=== PATIENT | female | born 1960 ===

== ENCOUNTER 2017-10-26 12:47 | Emergency (ER) | payer OTHER ==
[2017-10-26 13:02] VITALS: TEMP 98.6
--- NOTE | 2017-10-26 14:20 | ED PDOC ---
HPI: General Adult Time Seen by Provider: 10/26/17 13:48 Chief Complaint (Nursing): Abnormal Skin Integrity Chief Complaint (Provider): left sided facial swelling History Per: Patient History/Exam Limitations: no limitations Onset/Duration Of Symptoms: Days (x2) Current Symptoms Are (Timing): Still Present Recently: Treated By A Physician Additional Complaint(s): Prashant Delgado is a 57 year old female, with a past medical history of HTN and diabetes, who presents to the emergency department complaining of left sided facial swelling onset for x2 days. Patient states it started at the left upper jaw and then it spread down to left check and is associated with mild pain. Patient went to urgent clinic for symptoms and was prescribed Augmentin, but with no improvement which prompted ED visit. Patient denies any fever, discharge, headache, vision problems, sore throat or URI symptoms. No further medical complaints. PMD: Vadim Smith Past Medical History Reviewed: Historical Data, Nursing Documentation, Vital Signs Vital Signs: Last Vital Signs Temp 98.6 F 10/26/17 12:59 Pulse 103 H 10/26/17 12:59 Resp 20 10/26/17 12:59 BP 152/84 H 10/26/17 12:59 Pulse Ox 98 10/26/17 16:35 - Medical History PMH: Diabetes, HTN - Surgical History Surgical History: No Surg Hx - Family History Family History: States: No Known Family Hx - Allergies Allergies/Adverse Reactions: Allergies Allergy/AdvReac Type Severity Reaction Status Date / Time No Known Allergies Allergy Verified 10/26/17 12:57 Review of Systems ROS Statement: Except As Marked, All Systems Reviewed And Found Negative Constitutional: Negative for: Fever Eyes: Negative for: Vision Change ENT: Positive for: Other (left sided facial swelling). Negative for: Throat Pain Neurological: Negative for: Headache Physical Exam - Reviewed Nursing Documentation Reviewed: Yes Vital Signs Reviewed: Yes - Physical Exam Appears: Positive for: Well (comfortable), Non-toxic, No Acute Distress Head Exam: Positive for: ATRAUMATIC, NORMOCEPHALIC Skin: Positive for: Normal Color, Warm, Dry Eye Exam: Positive for: Normal appearance, EOMI, PERRL. Negative for: Periorbital swelling ENT: Positive for: Pharynx Is (normal), TM Is/Are (normal), Sinus Pain/Drainage (left sided maxillary sinus tenderness) Neck: Positive for: Painless ROM, Supple Cardiovascular/Chest: Positive for: Regular Rate, Rhythm. Negative for: Murmur Respiratory: Positive for: Normal Breath Sounds. Negative for: Respiratory Distress Extremity: Positive for: Normal ROM (upper and lower extremities). Negative for : Deformity, Swelling Neurologic/Psych: Positive for: Alert, Oriented. Negative for: Motor/Sensory Deficits - Laboratory Results Result Diagrams: 10/26/17 15:10 10/26/17 15:10 - ECG O2 Sat by Pulse Oximetry: 98 (RA) Pulse Ox Interpretation: Normal - Progress Re-evaluation Time: 16:53 Condition: Re-examined, Improved Medical Decision Making Medical Decision Making: Initial Impression: left sided facial swelling. Differential includes: maxillary sinusitis, possible dental abscess less likely parotitis. Initial Plan: --Maxillofacial w/o contrast [CT] --BMP --CBC w/ differential --Reevaluation 16:[address] FINDINGS: NASAL BONES: Unremarkable. ORBITS: Unremarkable. PARANASAL SINUSES/ MASTOIDS: Small mucous retention cyst at the base of the left maxillary sinus. Otherwise unremarkable paranasal sinusitis is which are well aerated without air-fluid levels or other stigmata of acute sinusitis. MAXILLA: Unremarkable. MANDIBLE/ TEMPOROMANDIBULAR JOINTS: Unremarkable. SKULL BASE: Unremarkable. TEMPORAL BONES: Middle ears and mastoid grossly unremarkable. OTHER FINDINGS: Dental disease primarily affecting the upper right mole are and incisor root IMPRESSION: No acute findings related to/accounting for the clinical presentation. Additional benign and/or incidental findings described above. Scribe Attestation: Documented by Ernesto Griffith, acting as a scribe for Bob Cohen MD Provider Scribe Attestation: All medical record entries made by the Scribe were at my direction and personally dictated by me. I have reviewed the chart and agree that the record accurately reflects my personal performance of the history, physical exam, medical decision making, and the department course for this patient. I have also personally directed, reviewed, and agree with the discharge instructions and disposition. Disposition - Clinical Impression Clinical Impression: Maxillary cyst, Facial swelling - Patient ED Disposition Is Patient to be Admitted: No Doctor Will See Patient In The: Office Counseled Patient/Family Regarding: Studies Performed, Diagnosis, Need For Followup - Disposition Referrals: Moy Devine MD [Staff Provider] - Disposition: Routine/Home Disposition Time: 16:55 Condition: GOOD Additional Instructions: Take motrin for pain. Apply warm compresses to face. Follow up with your PCP in 2-3 days. Instructions: Sinusitis in Adults
[2017-10-26 15:25] LABS: BASO # 0.1 K/uL (0.0-0.2); BASO % 1.1 % (0.0-2.0); EOS # 0.1 K/uL (0.0-0.7); EOS % 1.6 % (0.0-4.0); HEMOGLOBIN 13.4 g/dL (12.0-16.0); LYMPH # 2.5 K/uL (1.0-4.3); MEAN CELL VOLUME 89.1 fl (81.0-99.0); MEAN CORPUSCULAR HEMOGLOBIN 30.1 pg (27.0-31.0); MEAN CORPUSCULAR HGB CONC 33.7 g/dL (33.0-37.0); MEAN PLATELET VOLUME 9.2 fl (7.2-11.7); MONO # 0.6 K/uL (0.0-0.8); MONO % 6.8 % (0.0-10.0); NEUT # 5.8 K/uL (1.8-7.0); NEUT % 63.5 % (50.0-75.0); RBC 4.46 Mil/uL (3.80-5.20); RED CELL DISTRIBUTION WIDTH 13.3 % (11.5-14.5); WHITE BLOOD COUNT 9.2 K/uL (4.8-10.8)
[2017-10-26 15:37] LABS: BLOOD UREA NITROGEN 8 mg/dl (7-17); CALCIUM 10.6 mg/dL (8.4-10.2); GFR AFRICAN-AMERICAN > 60; GFR NON-AFRICAN AMERICAN > 60
--- NOTE | 2017-10-26 16:34 | CT ---
PROCEDURE: CT MAXILLOFACIAL BONES WITHOUT CONTRAST HISTORY: left maxillary sinus pain swelling COMPARISON: None TECHNIQUE: Contiguous axial CT images of the maxillofacial bones were obtained. Coronal and sagittal reformats were generated. Radiation dose: Total exam DLP = 750.02 mGy-cm. This CT exam was performed using one or more of the following dose reduction techniques: Automated exposure control, adjustment of the mA and/or kV according to patient size, and/or use of iterative reconstruction technique. FINDINGS: NASAL BONES: Unremarkable. ORBITS: Unremarkable. PARANASAL SINUSES/ MASTOIDS: Small mucous retention cyst at the base of the left maxillary sinus. Otherwise unremarkable paranasal sinusitis is which are well aerated without air-fluid levels or other stigmata of acute sinusitis. MAXILLA: Unremarkable. MANDIBLE/ TEMPOROMANDIBULAR JOINTS: Unremarkable. SKULL BASE: Unremarkable. TEMPORAL BONES: Middle ears and mastoid grossly unremarkable. OTHER FINDINGS: Dental disease primarily affecting the upper right mole are and incisor root IMPRESSION: No acute findings related to/accounting for the clinical presentation. Additional benign and/or incidental findings described above.
[2017-10-26 17:11] VITALS: BP 152/82; PULSE 68; RESP 18; O2SAT 100
== END 2017-10-26 17:00 | disposition home or self-care (01) ==
LOC: H.ER 12:47
DX: M27.40 Unspecified cyst of jaw (principal); R22.0 Localized swelling, mass and lump, head; E11.9 Type 2 diabetes mellitus without complications; I10 Essential (primary) hypertension